=== PATIENT | female | born 1960 | race Caucasian/White ===

== ENCOUNTER → 2017-03-02 | Outpatient (CLI) | payer OTHER ==
[~2017-03-02] VITALS: Ht 165.1 cm; Wt 72.6 kg
[~2017-03-02] MED LIST: BIOTIN1000 MICRO PO; CELEBREX400 MG PO; MINOCIN100 MG PO; SYNTHROID150 MCG PO; TYLENOL WITH C1 EACH PO; [UNRECOGNIZED DRUG - OTHER] PO
== END | disposition home or self-care (01) ==
LOC: AMB 07:30
PROC: 0DBE8ZX Excision of Large Intestine, Via Natural or Artificial Opening Endoscopic, Diagnostic (ICD-10-PCS; principal; 2017-03-02)
DX: R10.12 Left upper quadrant pain (principal); R19.7 Diarrhea, unspecified; M35.00 Sjogren syndrome, unspecified; L71.9 Rosacea, unspecified; M45.9 Ankylosing spondylitis of unspecified sites in spine; R74.8 Abnormal levels of other serum enzymes; K60.2 Anal fissure, unspecified; Z88.1 Allergy status to other antibiotic agents; Z91.041 Radiographic dye allergy status
CPT/HCPCS: 88305; J2250; J3010